=== PATIENT | female | born 1970 | race Caucasian/White ===

== ENCOUNTER → 2021-10-02 | Outpatient (CLI) | payer OTHER ==
--- NOTE | 2021-10-03 08:22 | US ---
EXAMINATION TYPE: US venous doppler duplex LE LT DATE OF EXAM: 10/02/2021 2:43 PM COMPARISON: NONE CLINICAL HISTORY: LLE I82.402. SIDE PERFORMED: TECHNIQUE: The lower extremity deep venous system is examined utilizing real time linear array sonog too with graded compression, doppler sonography and color-flow sonography. VESSELS IMAGED: Common Femoral Vein Deep Femoral Vein Greater Saphenous Vein * Femoral Vein Popliteal Vein Small Saphenous Vein * Proximal Calf Veins (* superficial vessels) Left Leg: Positive for DVT in CFV superior to CFV/DFV bifurcation, there is flow inferior to this. Preliminary results were provided to Ashlyn in Dr. Mendoza's office. IMPRESSION: 1. Deep venous thrombosis present within the left common femoral vein. 2. More distal left lower extremity venous structures have a more normal appearance.
== END | disposition home or self-care (01) ==
LOC: RADUSWWP 14:09 → MERGE 14:20
PROVIDERS: ATTEND Radiology Radiation Oncology
DX: I82.402 Acute embolism and thrombosis of unspecified deep veins of left lower extremity (principal)

== ENCOUNTER 2021-10-10 18:49 | Emergency (ER) | payer OTHER ==
[2021-10-10 19:51] VITALS: TEMP 97
[2021-10-10] MEDS ORDERED: SODIUM CHLORIDE 0.9% 1,000 ML IV STA ×2 (20:05→20:06)
[2021-10-10] MEDS ORDERED: ONDANSETRON 4 MG/2 ML VIAL IVP STA (20:05)
[2021-10-10] MEDS ORDERED: diphenhydrAMINE 50 MG/ML 1 ML VIAL IVP STA (20:05)
[2021-10-10] MEDS ORDERED: MORPHINE SULFATE 4 MG/ML SYRINGE IV STA (20:05)
[2021-10-10 20:51] LABS: Anisocytosis Moderate; HCT 33.1 % (34.0-46.0); HGB 9.7 gm/dL (11.4-16.0); Hypochromasia Marked; MCH 23.5 pg (25.0-35.0); MCHC 29.4 g/dL (31.0-37.0); MCV 79.8 fL (80.0-100.0); Mean Platelet Volume 6.8; Microcytosis Slight; Platelet Count 726 k/uL (150-450); Poikilocytosis Slight; RBC 4.14 m/uL (3.80-5.40); RDW 20.9 % (11.5-15.5); WBC 4.6 k/uL (3.8-10.6)
--- NOTE | 2021-10-10 21:09 | XR ---
EXAMINATION TYPE: XR chest 2V DATE OF EXAM: 10/10/2021 COMPARISON: NONE HISTORY: Nausea and vomiting TECHNIQUE: FINDINGS: Heart and mediastinum are normal. Lungs are clear of infiltrate. There is right central glenn ous catheter with tip in the superior vena cava. There are calcified granulomata in the left upper lo be. There is no pleural effusion. Bony thorax is intact IMPRESSION: No active cardiopulmonary disease. Normal heart.
[2021-10-10 21:19] LABS: ALT 6 U/L (4-34); AST 21 U/L (14-36); African American GFR (CKD) >90 (>60 ml/min/1.73 sqM); Albumin 2.3 g/dL (3.5-5.0); Alkaline Phosphatase 102 U/L (38-126); Amylase <30 U/L (30-110); Anion Gap 9 mmol/L; Blood Urea Nitrogen 17 mg/dL (7-17); Calcium 7.7 mg/dL (8.4-10.2); Carbon Dioxide 25 mmol/L (22-30); Chloride 96 mmol/L (98-107); Glucose 106 mg/dL (74-99); INR 1.1 (<1.2); Lipase <10 U/L (23-300); Non-African American GFR(CKD) >90 (>60 ml/min/1.73 sqM); Partial Thromboplastin Time 35.7 sec (22.0-30.0); Potassium 3.5 mmol/L (3.5-5.1); Prothrombin Time 12.2 sec (9.0-12.0); Sodium 130 mmol/L (137-145); Total Bilirubin 0.5 mg/dL (0.2-1.3); Total Protein 5.1 g/dL (6.3-8.2)
[2021-10-10 21:30] LABS: Band Neutrophils % 6 %; Eosinophils # (M) 0.05 k/uL (0-0.7); Lymphocytes # (M) 0.05 k/uL (1.0-4.8); Monocytes # (M) 0.64 k/uL (0-1.0); Neutrophils % (M) 78 %; Nucleated Red Blood Cells 0 /100 WBC (0-0); Total Cells Counted 100
[2021-10-10 21:31] LABS: Stomatocytes Present
[2021-10-10] MEDS ORDERED: HYDROmorphone 0.5 MG/0.5 ML SYRINGE IVP STA (22:22)
--- NOTE | 2021-10-10 22:35 | CT ---
EXAMINATION TYPE: CT abdomen pelvis w con DATE OF EXAM: 10/10/2021 COMPARISON: 08/13/2021 HISTORY: mid abd pain and down left leg CT DLP: 703.9 mGycm Automated exposure control for dose reduction was used. CONTRAST: Performed with IV Contrast, patient injected with 100 mL of Isovue 300. Images obtained from the diaphragm to the floor the pelvis with IV contrast. Lung bases are clear. There is no pleural effusion. There is mildly dilated biliary tree. There are c lips from cholecystectomy. Common bile duct measures 10 mm. Spleen is intact. There are numerous calc ified splenic granulomata. There is no pancreatic mass. Stomach is intact. There is no adrenal mass. Kidneys have normal size. There is mild left-sided hydronephrosis and hydro ureter. Bladder distends smoothly. There is a large mixed density mass in the retroperitoneum on the left side along the left psoas musc le. This measures 8.2 x 5.5 cm. There are multiple areas of low attenuation within the mass and the m ass is the same or slightly smaller than previous CT scan. This is probably cause for the left side h ydroureter. There are surgical clips at the sigmoid colon. There is lower anterior abdominal wall her ildefonso with incarcerated loop of small bowel bowel. No definite bowel obstruction. The lumbar vertebrae have normal alignment. There is no compression fracture. Bony pelvis is intact. IMPRESSION: Large retroperitoneal mass on the left side could be tumor of the proximal sigmoid colon. There is si gmoid colon wall thickening. The appearance overall not significantly different than old CT scan. 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 No bowel obstruction. Left-sided hydronephrosis and hydroureter n ot changed. Incarcerated anterior lower abdominal wall hernia containing small bowel without much change. Constipation. This appears similar to old exam.
--- NOTE | 2021-10-10 22:54 | ED ---
General Adult HPI - General Chief complaint: Abdominal Pain Stated complaint: cancer pt, abd pain Time Seen by Provider: 10/10/21 19:58 Source: patient, RN notes reviewed, old records reviewed Mode of arrival: ambulatory Limitations: no limitations - History of Present Illness Initial comments: Patient is a 50-year-old female with past medical history remarkable for colon cancer, chronic abdominal pain. She is currently undergoing radiation treatment for her colon cancer. Presents over concern for worsening of her chronic abdominal pain. She describes a sharp, achy sensation that his belt like across the top of her abdomen. She does have a history of multiple GI surgeries. Denies any change in stooling, is still passing gas. Denies any vomiting but does endorse some mild nausea. Denies any urinary complaints. Denies any vaginal discharge or bleeding. She just completed a round of radiation. She normally gets her care out of [facility] in [place]. She presents today over concern of possible new intra-abdominal process for her pain. She is on [place] at home. SHe is due to follow up with a pain specialist this week. Mike es any fevers, chills, sick contacts. - Related Data Home Medications Medication Instructions Recorded Confirmed Apixaban [Eliquis] 5 mg PO BID 10/10/21 10/10/21 HYDROcodone/APAP 10-325MG [[place] 1 tab PO Q6H 10/10/21 10/10/21 10-325] Ondansetron Odt [Zofran Odt] 8 mg PO Q8HR PRN 10/10/21 10/10/21 Prochlorperazine [Compazine] 10 mg PO Q6H PRN 10/10/21 10/10/21 Allergies Allergy/AdvReac Type Severity Reaction Status Date / Time amoxicillin Allergy Unknown Verified 10/10/21 21:28 Tetracyclines Allergy Unknown Verified 10/10/21 21:28 Review of Systems ROS Statement: Those systems with pertinent positive or pertinent negative responses have been documented in the HPI. Review of Systems: CONST: Denies fever EYES: Denies blurry vision ENT: Denies nasal congestion C/V: Denies Chest pain RESP: Denies shortness of breath GI: Endorses abdominal pain : Denies dysuria SKIN: Denies rash. MSK: Denies joint pain. NEURO: Denies headache ROS Other: All systems not noted in ROS Statement are negative. Past Medical History Past Medical History: Cancer History of Any Multi-Drug Resistant Organisms: None Reported Past Surgical History: Section, Cholecystectomy, Hysterectomy Past Psychological History: No Psychological Hx Reported Smoking Status: Never smoker Past Alcohol Use History: None Reported Past Drug Use History: None Reported General Exam - General Exam Comments Initial Comments: General: Appears in moderate distress secondary to abdominal pain. HEAD: Normal with no signs of head trauma. EYES: PERRLA, EOMI, conjunctiva normal, no discharge. Pupils are 2 mm and equal bilaterally. ENT: Hearing grossly intact, normal oropharynx. RESPIRATORY: Clear breath sounds bilaterally. No wheezes, rales, or rhonchi. C/V: Tachycardic with a regular rhythm. S1 and S2 auscultated. Peripheral pulses are 2+ and intact throughout. ABD: Abdomen is soft, nondistended. Patient is tender to palpation rather diffusely, primarily midepigastric region as well as periumbilically. No guarding. No rebound tenderness. No peritoneal signs. EXT: Normal range of motion, no obvious deformity SKIN: No rashes or lesions observed on exposed skin. NEURO: Alert and oriented 4. No focal deficits. Limitations: no limitations Course Vital Signs 10/10/21 10/10/21 19:46 23:05 Temperature 97.0 F L Pulse Rate 130 H 87 Respiratory 20 18 Rate Blood Pressure 100/68 134/84 O2 Sat by Pulse 99 96 Oximetry Medical Decision Making - Medical Decision Making Based on patient's presentation and physical exam, I'm concerned for possible acute intra-abdominal pathology with her chronic symptoms. We will obtain abdominal laboratory studies, as well as CT on pelvis. She'll be given a 1 L fluid bolus as well as IV analgesia. Patient was in agreement this plan. Laboratory studies were remarkable for a microcytic anemia with a hemoglobin of 9.7. Platelet count is high at 726. This is in the setting of radiation. Patient is mildly hyponatremic to 130 and hypochloremic to 96. Troponin is n egative. The remainder of the labs are unremarkable. Calcium is slightly low at 7.7. EKG showed no signs of acute ischemia. Chest x-ray showed no acute cardio pulmonary process. CT of the abdomen and pelvis revealed chronic processes, including a small bowel hernia, mild constipation, a sided h ydronephrosis and hydroureter, as well as a retroperitoneal sarcoma. There is known cancer in the sigmoid colon.Lactic acid is wnl. No acute intraabdominal process. On reevaluation, patient's pain is improved. Vitals are improved at this time as well. We discussed her unchanged and otherwise negative workup. Discussed admission here versus transfer to the outside hospital versus discharge home. She would like to go home and follow up with her physicians as needed. I believe this is reasonable. I instructed the patient to follow up with their PCP in the next 3 days. I explained that the patient should return to the emergency department if they experience any worsening symptoms. Strict return precautions were discussed with the patient. The patient expressed understanding of these instructions. I answered all questions that the patient had. The patient was discharged home in fair condition with their prescriptions and follow up information. - Lab Data Result diagrams: 10/10/21 20:37 10/10/21 20:37 Lab Results 10/10/21 10/10/21 10/10/21 Range/Units 20:28 20:37 20:37 WBC 4.6 (3.8-10.6) k/uL RBC 4.14 (3.80-5.40) m/uL Hgb 9.7 L (11.4-16.0) gm/dL Hct 33.1 L (34.0-46.0) % MCV 79.8 L (80.0-100.0) fL MCH 23.5 L (25.0-35.0) pg MCHC 29.4 L (31.0-37.0) g/dL RDW 20.9 H (11.5-15.5) % Plt Count 726 H (150-450) k/uL MPV 6.8 Neutrophils % (Manual) 78 % Band Neuts % (Manual) 6 % Lymphocytes % (Manual) 1 % Monocytes % (Manual) 14 % Eosinophils % (Manual) 1 % Neutrophils # (Manual) 3.80 (1.3-7.7) k/uL Lymphocytes # (Manual) 0.05 L (1.0-4.8) k/uL Monocytes # (Manual) 0.64 (0-1.0) k/uL Eosinophils # (Manual) 0.05 (0-0.7) k/uL Nucleated RBCs 0 (0-0) /100 WBC Manual Slide Review Performed Hypochromasia Marked Poikilocytosis Slight Anisocytosis Moderate Microcytosis Slight Stomatocytes Present PT 12.2 H (9.0-12.0) sec INR 1.1 (<1.2) APTT 35.7 H (22.0-30.0) sec Sodium (137-145) mmol/L Potassium (3.5-5.1) mmol/L Chloride (98-107) mmol/L Carbon Dioxide (22-30) mmol/L Anion Gap mmol/L BUN (7-17) mg/dL Creatinine (0.52-1.04) mg/dL Est GFR (CKD-EPI)AfAm (>60 ml/min/1.73 sqM) Est GFR (CKD-EPI)NonAf (>60 ml/min/1.73 sqM) Glucose (74-99) mg/dL Plasma Lactic Acid Valeriy (0.7-2.0) mmol/L Calcium (8.4-10.2) mg/dL Total Bilirubin (0.2-1.3) mg/dL AST (14-36) U/L ALT (4-34) U/L Alkaline Phosphatase (38-126) U/L Troponin I (0.000-0.034) ng/mL Total Protein (6.3-8.2) g/dL Albumin (3.5-5.0) g/dL Amylase (30-110) U/L Lipase (23-300) U/L Blood Type A Negative Blood Type Confirm Blood Type Recheck No Previous Record Bld Type Recheck Status CABO Indicated Antibody Screen NEGATIVE Spec Expiration Date 10/13/2021 - 233910/10/21 10/10/21 10/10/21 Range/Units 20:37 20:37 20:37 WBC (3.8-10.6) k/uL RBC (3.80-5.40) m/uL Hgb (11.4-16.0) gm/dL Hct (34.0-46.0) % MCV (80.0-100.0) fL MCH (25.0-35.0) pg MCHC (31.0-37.0) g/dL RDW (11.5-15.5) % Plt Count (150-450) k/uL MPV Neutrophils % (Manual) % Band Neuts % (Manual) % Lymphocytes % (Manual) % Monocytes % (Manual) % Eosinophils % (Manual) % Neutrophils # (Manual) (1.3-7.7) k/uL Lymphocytes # (Manual) (1.0-4.8) k/uL Monocytes # (Manual) (0-1.0) k/uL Eosinophils # (Manual) (0-0.7) k/uL Nucleated RBCs (0-0) /100 WBC Manual Slide Review Hypochromasia Poikilocytosis Anisocytosis Microcytosis Stomatocytes PT (9.0-12.0) sec INR (<1.2) APTT (22.0-30.0) sec Sodium 130 L (137-145) mmol/L Potassium 3.5 (3.5-5.1) mmol/L Chloride 96 L (98-107) mmol/L Carbon Dioxide 25 (22-30) mmol/L Anion Gap 9 mmol/L BUN 17 (7-17) mg/dL Creatinine 0.46 L (0.52-1.04) mg/dL Est GFR (CKD-EPI)AfAm >90 (>60 ml/min/1.73 sqM) Est GFR (CKD-EPI)NonAf >90 (>60 ml/min/1.73 sqM) Glucose 106 H (74-99) mg/dL Plasma Lactic Acid Valeriy 1.2 (0.7-2.0) mmol/L Calcium 7.7 L (8.4-10.2) mg/dL Total Bilirubin 0.5 (0.2-1.3) mg/dL AST 21 (14-36) U/L ALT 6 (4-34) U/L Alkaline Phosphatase 102 (38-126) U/L Troponin I <0.012 (0.000-0.034) ng/mL Total Protein 5.1 L (6.3-8.2) g/dL Albumin 2.3 L (3.5-5.0) g/dL Amylase <30 L (30-110) U/L Lipase <10 L (23-300) U/L Blood Type Blood Type Confirm Blood Type Recheck Bld Type Recheck Status Antibody Screen Spec Expiration Date 10/10/21 Range/Units 20:39 WBC (3.8-10.6) k/uL RBC (3.80-5.40) m/uL Hgb (11.4-16.0) gm/dL Hct (34.0-46.0) % MCV (80.0-100.0) fL MCH (25.0-35.0) pg MCHC (31.0-37.0) g/dL RDW (11.5-15.5) % Plt Count (150-450) k/uL MPV Neutrophils % (Manual) % Band Neuts % (Manual) % Lymphocytes % (Manual) % Monocytes % (Manual) % Eosinophils % (Manual) % Neutrophils # (Manual) (1.3-7.7) k/uL Lymphocytes # (Manual) (1.0-4.8) k/uL Monocytes # (Manual) (0-1.0) k/uL Eosinophils # (Manual) (0-0.7) k/uL Nucleated RBCs (0-0) /100 WBC Manual Slide Review Hypochromasia Poikilocytosis Anisocytosis Microcytosis Stomatocytes PT (9.0-12.0) sec INR (<1.2) APTT (22.0-30.0) sec Sodium (137-145) mmol/L Potassium (3.5-5.1) mmol/L Chloride (98-107) mmol/L Carbon Dioxide (22-30) mmol/L Anion Gap mmol/L BUN (7-17) mg/dL Creatinine (0.52-1.04) mg/dL Est GFR (CKD-EPI)AfAm (>60 ml/min/1.73 sqM) Est GFR (CKD-EPI)NonAf (>60 ml/min/1.73 sqM) Glucose (74-99) mg/dL Plasma Lactic Acid Valeriy (0.7-2.0) mmol/L Calcium (8.4-10.2) mg/dL Total Bilirubin (0.2-1.3) mg/dL AST (14-36) U/L ALT (4-34) U/L Alkaline Phosphatase (38-126) U/L Troponin I (0.000-0.034) ng/mL Total Protein (6.3-8.2) g/dL Albumin (3.5-5.0) g/dL Amylase (30-110) U/L Lipase (23-300) U/L Blood Type Blood Type Confirm A Negative Blood Type Recheck Bld Type Recheck Status Antibody Screen Spec Expiration Date - EKG Data -: EKG Interpreted by Me EKG Comments: 12-lead Electrocardiogram Interpretation Note EKG was reviewed and interpreted by myself. 12-lead ECG performed at 2020 is interpreted by me as revealing sinus tachycardia at a rate of 107 beats per minute. [place] is normal. [place] interval is 102 ms, QRS duration is 92 ms, QTc is 374 ms. Patient does have T-wave flattening versus inversions diffusely. No prior EKG for comparison.. There were no ST or T wave abnormalities to suggest myocardial ischemia or injury. R wave progression across the precordium was satisfactory. By my interpretation this EKG is non-diagnostic for acute ischemia. Disposition Clinical Impression: Chronic abdominal pain Disposition: HOME SELF-CARE Condition: Stable Instructions (If sedation given, give patient instructions): Abdominal Pain (ED) Is patient prescribed a controlled substance at d/c from ED?: No Referrals: Cruz Wilson, [Primary Care Provider] - 1-2 days
[2021-10-10 23:06] VITALS: BP 134/84; PULSE 87; RESP 18
== END 2021-10-10 23:15 | disposition home or self-care (01) ==
LOC: EC 18:49
DX: G89.29 Other chronic pain (principal); R10.9 Unspecified abdominal pain; Z88.0 Allergy status to penicillin; Z88.1 Allergy status to other antibiotic agents
CPT/HCPCS: 36415; 93005; 86900; 86901; 80053; 82150; 83605; 83690; 84484; 85025; 85610; 85730; 86850; 87040; 71046; 74177; 99284; 96374; 96375; J2270; J1200; J2405; J1170; Q9967

== ENCOUNTER → 2021-10-24 | Outpatient (CLI) | payer OTHER ==
--- NOTE | 2021-10-24 13:26 | US ---
EXAMINATION TYPE: US venous doppler duplex UE LT DATE OF EXAM: 10/24/2021 COMPARISON: NONE CLINICAL HISTORY: Pain/swelling left arm and left leg R22.42,R22.32. SIDE PERFORMED: Left Left Arm: Negative for DVT IMPRESSION: No evidence for DVT at this time.
--- NOTE | 2021-10-24 13:31 | US ---
EXAMINATION TYPE: US venous doppler duplex LE LT DATE OF EXAM: 10/24/2021 12:41 PM COMPARISON: NONE CLINICAL HISTORY: Pain/swelling left arm and left leg R22.42,R22.32. SIDE PERFORMED: Left TECHNIQUE: The lower extremity deep venous system is examined utilizing real time linear array sonog too with graded compression, doppler sonography and color-flow sonography. VESSELS IMAGED: Common Femoral Vein Deep Femoral Vein Greater Saphenous Vein * Femoral Vein Popliteal Vein Small Saphenous Vein * Proximal Calf Veins (* superficial vessels) Left Leg: Positive for DVT in CFV. This appears almost exactly the same as the previous exam on 10-02-21. IMPRESSION: As above
== END | disposition home or self-care (01) ==
LOC: RADUSWWP 12:11
PROVIDERS: ATTEND Internal Medicine Hematology & Oncology
DX: R22.32 Localized swelling, mass and lump, left upper limb (principal); M79.602 Pain in left arm; R22.42 Localized swelling, mass and lump, left lower limb; M79.662 Pain in left lower leg